=== PATIENT | female | born 1975 | race Caucasian/White ===

== ENCOUNTER 2018-02-22 13:16 | Emergency (ER) | payer SELFPAY ==
[2018-02-22 14:04] VITALS: BP 128/82
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
--- NOTE | 2018-02-22 15:35 | RAD ---
Indication: Recent head injury. Comparison: April 04, 2014 Technique: Noncontrast CT vertex of skull through foramen magnum. Report: The sulci, ventricles, and basal cisterns are normal for age. Cabrera matter white matter differentiation is preserved without evidence for edema. No intra or extra axial hemorrhage is detected. Unremarkable visualized orbital contents. Negative for calvarial or skull base fracture. Negative for scalp hematoma. The visualized paranasal sinuses and mastoid air spaces are clear. IMPRESSION: #. No CT evidence for traumatic brain injury or acute intracranial process. Negative exam.
== END 2018-02-22 15:57 | disposition home or self-care (01) ==
LOC: UCEAST 13:16
DX: S06.0X9A Concussion with loss of consciousness of unspecified duration, initial encounter (principal); W50.0XXA Accidental hit or strike by another person, initial encounter; Y93.9 Activity, unspecified; Y92.9 Unspecified place or not applicable; Z88.1 Allergy status to other antibiotic agents; Z88.5 Allergy status to narcotic agent; F17.210 Nicotine dependence, cigarettes, uncomplicated
CPT/HCPCS: 70450; 99211; G0463

== ENCOUNTER 2018-02-28 15:02 | Emergency (ER) | payer OTHER ==
[2018-02-28 15:18] VITALS: BP 132/81
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
== END 2018-02-28 15:42 | disposition home or self-care (01) ==
LOC: UCEAST 15:02
DX: F07.81 Postconcussional syndrome (principal); Z88.5 Allergy status to narcotic agent; Z88.1 Allergy status to other antibiotic agents; F17.210 Nicotine dependence, cigarettes, uncomplicated
CPT/HCPCS: 99211; G0463